=== PATIENT | female | born 1985 | race African-American/Black ===

== ENCOUNTER 2021-08-28 13:36 | Inpatient (IN) | payer BC ==
[2021-08-28] MEDS ORDERED: Labetalol HCl 100 MG/20 ML VIAL SLOW IVP PRN ×2 (13:39)
[2021-08-28] MEDS ORDERED: Zolpidem Tartrate 5 MG TAB PO PRN (13:39)
[2021-08-28] MEDS ORDERED: hydrALAZINE 20 MG/ML VIAL SLOW IVP PRN ×3 (13:39)
[2021-08-28] MEDS ORDERED: Lidocaine 1% (PF) 30 ML VIAL SC PRN (13:39)
[2021-08-28] MEDS ORDERED: Calcium Gluc 4.6 MEQ/10 ML (100 MG/ML) SLOW IVP PRN (13:39)
[2021-08-28] MEDS ORDERED: Ibuprofen 800 MG TAB PO PRN (13:39)
[2021-08-28] MEDS ORDERED: Ondansetron PF 4 MG/2 ML Vial IVP PRN (13:39)
[2021-08-28] MEDS ORDERED: HYDROcodone/Acetaminophen 5/325 mg Tablet PO PRN ×2 (13:39)
[2021-08-28] MEDS ORDERED: Diphenoxylate HCl/Atropine Tablet PO PRN ×2 (13:39)
[2021-08-28] MEDS ORDERED: Lorazepam 2 MG/ML VIAL SLOW IVP PRN (13:39)
[2021-08-28] MEDS ORDERED: Misoprostol 200 MCG TAB PR PRN (13:39)
[2021-08-28] MEDS ORDERED: Docusate 100 MG CAP PO PRN (13:39)
[2021-08-28] MEDS ORDERED: Promethazine HCl 25 MG/ML VIAL IM PRN (13:39)
[2021-08-28] MEDS ORDERED: Butorphanol Tartrate 1 MG/ML VIAL SLOW IVP PRN (13:39)
[2021-08-28] MEDS ORDERED: Acetaminophen 500 MG TAB PO PRN (13:39)
[2021-08-28] MEDS ORDERED: NS w/ Oxytocin 30 units 500 ML IV SCH ×2 (13:45)
[2021-08-28 14:28] VITALS: BMI 44.1
[2021-08-28] MEDS ORDERED: NS w/ Oxytocin 30 units 500 ML ONE (14:34)
[2021-08-28 14:42] LABS: #Monocytes 0.9 10x3/uL (0.0-1.1); #Neutrophils 6.6 10x3/uL (1.5-8.4); %Basophils 0.3 % (0.0-2.0); %Eosinophils 0.3 % (0.0-6.0); %Lymphocytes 17.7 % (18.0-47.0); %Monocytes 9.5 % (0.0-10.0); %Neutrophils 71.8 % (40.0-75.0); Hemoglobin 11.9 g/dL (12.0-15.5); Mean Corpuscular HGB CONC 34.3 g/dL (32.0-36.0); Mean Corpuscular Hemoglobin 29.7 pg (27.0-33.0); Mean Corpuscular Volume 86.5 fl (81.6-98.3); Mean Platelet Volume 9.3 fl (7.4-10.4); Platelet Count 297 10x3/uL (150-450); RBC Distribution Width 13.8 % (11.5-14.5); Red Blood Cell (RBC) Count 4.01 10x6/uL (3.90-5.03); White Blood Cell (WBC) Count 9.2 10x3/uL (3.5-10.5)
[2021-08-28 14:54] LABS: Creatinine, Urine 166.42 mg/dL (47-110)
[2021-08-28 14:54] LABS: ALT (SGPT) 15 U/L (8-55); AST (SGOT) 21 U/L (5-34); Albumin 3.4 g/dL (3.5-5.0); Alkaline Phosphatase 128 U/L (40-110); Bilirubin, Direct 0.1 mg/dL (0.1-0.3); Bilirubin, Total 0.3 mg/dL (0.2-1.2); Protein, Total 6.7 g/dL (6.0-8.3)
[2021-08-28 15:12] LABS: HIV (1/2) Antibody/Antigen Non-Reactive (NonReactive); HIV 1/2 INDEX 0.06 S/CO (<1.00); Hep B Surf Ag Non-Reactive S/CO (NonReactive); Syphilis Antibody Nonreactive (Nonreactive); Syphilis Antibody Index 0.11 S/CO (<1.00 Non-Reactive)
[2021-08-28 15:14] LABS: HBSAg Index 0.11 S/CO (0-0.99)
[2021-08-28 15:45] LABS: SARS-CoV-2 NAA Rapid Test Not Detected (NotDetected)
[2021-08-28] MEDS ORDERED: Labetalol HCl 200 MG TAB PO SCH ×2 (16:00→21:00)
[2021-08-28] MEDS ORDERED: Magnesium Sulfate 20 gm/500 ml 20 GM/500 ML BAG ONE (17:10)
[2021-08-28] MEDS: Magnesium Sulfate 20 gm/500 ml 20 GM/500 ML BAG IVPB SCH (17:14)
[2021-08-28] MEDS ORDERED: Magnesium Sulfate 20 gm/500 ml 20 GM/500 ML BAG IVPB SCH (17:15)
[2021-08-29] MEDS: Magnesium Sulfate 20 gm/500 ml 20 GM/500 ML BAG IVPB SCH (02:12)
[2021-08-29] MEDS ORDERED: Fentanyl 2 mcg/Bup 0.1% Cadd 100 ML ONE (05:13)
[2021-08-29] MEDS ORDERED: Labetalol HCl 200 MG TAB PO SCH (06:00)
[2021-08-29] MEDS ORDERED: Promethazine HCl 25 MG/ML VIAL IM PRN (06:05)
[2021-08-29] MEDS ORDERED: Naloxone HCl 0.4 mg/ml Vial IVP PRN ×2 (06:05)
[2021-08-29] MEDS ORDERED: ePHEDrine Sulfate 50 MG/10 ML VIAL SLOW IVP PRN (06:05)
[2021-08-29] MEDS ORDERED: Moisturizing Cream (Eucerin) 113 GM JAR TOP PRN (06:05)
[2021-08-29] MEDS ORDERED: Ondansetron PF 4 MG/2 ML Vial IVP PRN ×2 (06:05→10:30)
[2021-08-29] MEDS ORDERED: Acetaminophen 325 MG TAB PO PRN (06:05)
[2021-08-29] MEDS ORDERED: diphenhydrAMINE 50 MG/ML VIAL IVP PRN (06:05)
[2021-08-29] MEDS ORDERED: Lactated Ringer's 500 ML IV PRN (06:09)
[2021-08-29] MEDS ORDERED: Communication Order-Pharmacy FS SCH (06:15)
[2021-08-29] MEDS ORDERED: Fentanyl 2 mcg/Bupivacaine 0.1% Cassette 100 ML EPIDURAL SCH (06:15)
[2021-08-29] MEDS ORDERED: Carboprost 250 MCG/ML AMP ONE (09:29)
[2021-08-29] MEDS ORDERED: Boostrix 0.5 ML (Tdap) VIAL IM ONE (10:30)
[2021-08-29] MEDS ORDERED: Benzocaine-Menthol 82.5 ML CAN TOP PRN (10:30)
[2021-08-29] MEDS ORDERED: Zolpidem Tartrate 5 MG TAB PO PRN (10:30)
[2021-08-29] MEDS ORDERED: hydrALAZINE 20 MG/ML VIAL SLOW IVP PRN (10:30)
[2021-08-29] MEDS ORDERED: Lanolin Ointment 7 GM TUBE TOP PRN (10:30)
[2021-08-29] MEDS ORDERED: Milk Of Magnesia 30 ML UDCUP PO PRN (10:30)
[2021-08-29] MEDS ORDERED: diphenhydrAMINE 25 MG CAP PO PRN (10:30)
[2021-08-29] MEDS ORDERED: Bisacodyl 10 MG SUPP PR PRN (10:30)
[2021-08-29] MEDS ORDERED: Misoprostol 200 MCG TAB VAG PRN (10:30)
[2021-08-29] MEDS ORDERED: Preparation H Ointment 28 GM TUBE PR PRN (10:30)
[2021-08-29] MEDS ORDERED: HYDROcodone/Acetaminophen 5/325 mg Tablet PO PRN ×2 (10:30)
[2021-08-29] MEDS ORDERED: NS w/ Oxytocin 30 units 500 ML IV SCH (10:30)
[2021-08-29] MEDS ORDERED: Magnesium 2 GM/50 ML(in water) 1 GM in Premix Bag 1 BAG IVPB SCH (10:45)
[2021-08-29] MEDS: Labetalol HCl 200 MG TAB PO SCH ×2 (14:56→21:07)
[2021-08-29] MEDS: Ibuprofen 800 MG TAB PO SCH (14:59)
[2021-08-29] MEDS: Lactated Ringer's 1,000 ML IV SCH (16:43)
[2021-08-29] MEDS ORDERED: Magnesium Sulfate 20 gm/500 ml 20 GM/500 ML BAG ONE (16:54)
[2021-08-29] MEDS: Ferrous Sulfate 325 MG TAB PO SCH (17:44)
[2021-08-30 05:10] LABS: Hemoglobin 11.2 g/dL (12.0-15.5); Mean Corpuscular HGB CONC 34.9 g/dL (32.0-36.0); Mean Corpuscular Hemoglobin 30.7 pg (27.0-33.0); Mean Corpuscular Volume 87.9 fl (81.6-98.3); Mean Platelet Volume 9.3 fl (7.4-10.4); Platelet Count 286 10x3/uL (150-450); RBC Distribution Width 13.9 % (11.5-14.5); Red Blood Cell (RBC) Count 3.65 10x6/uL (3.90-5.03); White Blood Cell (WBC) Count 14.9 10x3/uL (3.5-10.5)
[2021-08-30] MEDS: Labetalol HCl 200 MG TAB PO SCH ×3 (08:00→20:41)
[2021-08-30] MEDS: Docusate 100 MG CAP PO SCH ×3 (08:01→20:41)
[2021-08-30] MEDS: Ferrous Sulfate 325 MG TAB PO SCH ×2 (08:18→20:20)
[2021-08-30] MEDS: Hydrochlorothiazide 25 MG TAB PO SCH (08:22)
[2021-08-30] MEDS: Ibuprofen 800 MG TAB PO SCH ×4 (11:54→20:46)
[2021-08-30] MEDS: Magnesium 2 GM/50 ML(in water) 2 GM in Premix Bag 1 BAG IVPB SCH (20:20)
[2021-08-30] MEDS: Lactated Ringer's 1,000 ML IV SCH ×2 (20:21→20:22)
[2021-08-31] MEDS: Lactated Ringer's 1,000 ML IV SCH (00:22)
[2021-08-31] MEDS: Ibuprofen 800 MG TAB PO SCH ×4 (04:47→20:53)
[2021-08-31] MEDS ORDERED: hydrALAZINE 20 MG/ML VIAL ONE (05:31)
[2021-08-31] MEDS: hydrALAZINE 20 MG/ML VIAL SLOW IVP PRN ×2 (05:39→16:46)
[2021-08-31] MEDS: Labetalol HCl 200 MG TAB PO SCH ×2 (07:43→20:48)
[2021-08-31] MEDS: Docusate 100 MG CAP PO SCH ×2 (07:44→20:48)
[2021-08-31] MEDS: Ferrous Sulfate 325 MG TAB PO SCH ×2 (07:45→16:20)
[2021-08-31] MEDS: Hydrochlorothiazide 25 MG TAB PO SCH (07:45)
[2021-08-31] MEDS: NIFEdipine XL 30 MG TAB PO SCH (12:31)
[2021-09-01] MEDS: Ibuprofen 800 MG TAB PO SCH ×2 (05:25→12:59)
[2021-09-01] MEDS: Hydrochlorothiazide 25 MG TAB PO SCH (08:10)
[2021-09-01] MEDS: Docusate 100 MG CAP PO SCH (08:10)
[2021-09-01] MEDS: Labetalol HCl 200 MG TAB PO SCH (08:10)
[2021-09-01] MEDS: Ferrous Sulfate 325 MG TAB PO SCH (08:13)
[2021-09-01 11:46] VITALS: BP 144/82; TEMP 98.9
[2021-09-01] MEDS: NIFEdipine XL 30 MG TAB PO SCH (12:59)
== END 2021-09-01 15:55 | disposition home or self-care (01) | DRG 807 ==
LOC: CSHLD/OP 13:36 → CSHLD 13:38 → CSHPP 08-30 00:25
PROVIDERS: ADMIT Obstetrics & Gynecology; ATTEND Obstetrics & Gynecology
PROC: 10E0XZZ Delivery of Products of Conception, External Approach (ICD-10-PCS; principal; 2021-08-29)
PROC: 3E033VJ Introduction of Other Hormone into Peripheral Vein, Percutaneous Approach (ICD-10-PCS; 2021-08-29)
PROC: 10907ZC Drainage of Amniotic Fluid, Therapeutic from Products of Conception, Via Natural or Artificial Opening (ICD-10-PCS; 2021-08-29)
DX: O14.94 Unspecified pre-eclampsia, complicating childbirth (principal); Z37.0 Single live birth; Z3A.37 37 weeks gestation of pregnancy; Z20.822 Contact with and (suspected) exposure to COVID-19; Z79.82 Long term (current) use of aspirin; Z79.899 Other long term (current) drug therapy
CPT/HCPCS: 36415; 36416; 51702; 80076; 82570; 83615; 84156; 84550; 85025; 85027; 86780; 86850; 86900; 86901; 87340; 87389; J0360; J2590; J3475; J7120; U0002